=== PATIENT | female | born 1945 | race Caucasian/White ===

== ENCOUNTER 2018-02-13 07:19 | Day surgery (SDC) | payer OTHER ==
[~2018-02-13 07:19] MED LIST: BACT800T5 PO; BUSP10 PO; HYDR-3533 PO; HYDR12.56 PO; PANT20 PO; ZOCO40TA PO
[2018-02-13 07:40] VITALS: BP 174/87; PULSE 77; RESP 20; TEMP 98.7; O2SAT 96
[2018-02-13] MEDS ORDERED: SODIUM CHLOR 0.9% 1000 ML INJ 1,000 ML IV SCH (07:45)
[2018-02-13] MEDS ORDERED: ZOCO20TA PO (08:22)
[2018-02-13] MEDS ORDERED: LEXA5TAB PO (08:22)
[2018-02-13] MEDS ORDERED: FURO1TAB62 PO (08:22)
[2018-02-13] MEDS ORDERED: PROT40TA PO (08:22)
[2018-02-13] MEDS ORDERED: HYDR-3516 PO (08:22)
[2018-02-13] MEDS ORDERED: BUSP10TA PO (08:22)
[2018-02-13 08:45] LABS: AUTOMATED NEUTROPHIL # 3.4 TH/MM3 (1.8-7.7); BASOPHIL # 0.1 TH/MM3 (0-0.2); BASOPHIL % 1.2 % (0.0-2.0); EOSINOPHIL # 0.1 TH/MM3 (0-0.4); EOSINOPHIL % 2.1 % (0.0-4.0); HEMATOCRIT 39.3 % (35.0-46.0); LYMPH % 28.7 % (9.0-44.0); LYMPHOCYTE # 1.8 TH/MM3 (1.0-4.8); MEAN CELL VOLUME 91.8 FL (80.0-100.0); MEAN CORPUSCULAR HEMOGLOBIN 30.3 PG (27.0-34.0); MONO % 13.2 % (0.0-8.0); MONOCYTE # 0.8 TH/MM3 (0-0.9); NEUT % 54.8 % (16.0-70.0); PLATELET COUNT 328 TH/MM3 (150-450); RED BLOOD COUNT 4.28 MIL/MM3 (4.00-5.30); WHITE BLOOD COUNT 6.2 TH/MM3 (4.0-11.0)
[2018-02-13 08:52] LABS: PROTHROMBIN TIME - PATIENT 9.8 SEC (9.8-11.6)
--- NOTE | 2018-02-13 09:17 | PD.RAD ---
Post Procedure Progress Note Procedure Date: Feb 13, 2018 Supervising Radiologist: Nimesh Lacy Proceduralist/Assist: Ras Hester, RT(R), Other Anesthesia: Conscious Sedation Plan of Activity Patient to Unit: ROPU Patient Condition: Good See PACS Report for procedural detail/treatment Nimesh Lacy MD Feb 13, 2018 09:17
[2018-02-13 09:20] VITALS: BP 160/69; PULSE 88; RESP 18; TEMP 98; O2SAT 97
--- NOTE | 2018-02-13 10:11 | RADRPT ---
EXAM DATE: 02/13/2018 9:44 AM EDT AGE/SEX: 72 years / Female INDICATIONS: Patient in need of lumbar puncture to evaluate for multiple sclerosis. CLINICAL DATA: This is the patient's initial encounter. Patient reports that signs and symptoms have been present for > 1 year and indicates a pain score of 0/10. MEDICAL/SURGICAL HISTORY: Hypertension. Gastroesophageal reflux disease. High cholesterol.Migr aines.HSV.Cervicalgia.Anxiety.Peripheral neuropathy.Depression.Insomnia. Appendectomy. Cholecystect hubert. RT Oophorectomy.Partial hysterectomy.RT foot ORIF. COMPARISON: No prior [facility] exams available for comparison. FLUORO TIME (min): 0.185 IMAGE SERIES: 1 ACCESS SITE: L3-4 LUMBAR PUNCTURE TIME: 0912 hours FLUID: Total volume of 13 cc of Clear fluid was removed. Fluid was sent to lab for ordered studies. . . PROCEDURE: 1. Fluoroscopic guided lumbar puncture. The risks, benefits and alternatives to the procedure were explained and verbal and written consent w as obtained. The site was prepped in sterile fashion. Full sterile technique was used, including ca p, mask, sterile gloves and gown and a large sterile sheet. Hand hygiene and 2% chlorhexidine and/or betadine/alcohol prep was utilized per protocol for cutaneous antisepsis. The skin and subcutaneous tissues were infiltrated with local anesthetic solution. With fluoroscopic guidance the lumbar thecal sac was punctured at the level above. The fluid describ ed above was removed without difficulty. The patient tolerated the procedure well and there were no complications. CONCLUSION: 1. Uncomplicated fluoroscopically guided lumbar puncture. Electronically signed by: Nimesh Lacy MD 02/13/2018 10:10 AM EDT
[2018-02-13 10:23] LABS: TOTAL PROTEIN,CSF 54.9 MG/DL (15.0-45.0)
[2018-02-13 10:55] LABS: SUPERNATE COLOR TUBE #1 CLEAR (CLEAR)
[2018-02-13 10:56] LABS: CSF LYMPHOCYTES 50 %; CSF NEUTROPHILS 50 %; RBC TUBE #4 127 /MM3; WBC TUBE #4 8 /MM3 (0-10)
[2018-02-13 11:05] VITALS: BP 144/68; PULSE 85; RESP 18; O2SAT 95
[2018-02-14 08:46] LABS: KAPPA LAMBDA RATIO 1.5 (1.57-3.93)
[2018-02-16 09:28] LABS: CSF CRYPTOCOCCUS AG CONF ND (NOT DETECTD)
[2018-02-16 09:36] LABS: ALBUMIN CSF 34.9 mg/dL (<=27.0); IGG INDEX CSF 0.45 (<=0.85); IGG/ALBUMIN CSF 0.09 (<=0.21); IGG/ALBUMIN SERUM 0.2 (<=0.40)
[2018-02-17 16:40] LABS: ALB/GLOB RATIO (SPE) 1.51 (1.39-2.23)
== END 2018-02-13 11:30 | disposition home or self-care (01) ==
LOC: HROP 07:19 → HRIP 07:25 → HROP 11:30
PROVIDERS: ATTEND Psychiatry & Neurology Neurology
DX: Z13.828 Encounter for screening for other musculoskeletal disorder (principal); I10 Essential (primary) hypertension; K21.9 Gastro-esophageal reflux disease without esophagitis; E78.00 Pure hypercholesterolemia, unspecified; F41.9 Anxiety disorder, unspecified; G62.9 Polyneuropathy, unspecified; F32.9 Major depressive disorder, single episode, unspecified; G47.00 Insomnia, unspecified
CPT/HCPCS: 62270; 77003; 82040; 82042; 82784; 82945; 83873; 83883; 83916; 84157; 84165; 85025; 85610; 85730; 86334; 86335; 86403; 86592; 86618; 87015; 87070; 87102; 87116; 87205; 87206; 88108; 89051; J7030